=== PATIENT | male | born 2000 | race Caucasian/White ===

== ENCOUNTER 2023-01-13 10:11 | Emergency (ER) | payer BC ==
[2023-01-13] MEDS ORDERED: Dicyclomine 20 MG/2 ML VIAL ONE (10:48)
[2023-01-13] MEDS ORDERED: Ondansetron ODT 4 MG TAB ONE (10:48)
[2023-01-13] MEDS ORDERED: Diphenoxylate HCl/Atropine Tablet ONE ×2 (11:52→11:53)
== END 2023-01-13 13:02 | disposition home or self-care (01) ==
LOC: CSHERS 10:11
DX: B34.9 Viral infection, unspecified (principal); R19.7 Diarrhea, unspecified
CPT/HCPCS: 96360; 96372; Q0162

== ENCOUNTER 2023-01-17 20:39 | Emergency (ER) | payer BC ==
[~2023-01-17 20:39] MED LIST: Iopamidol 300 61% 100 ML VIAL FS ONE
[2023-01-17 22:27] LABS: Hemoglobin 13.8 g/dL (13.5-17.5); MDiff Complete? YES; Mean Corpuscular HGB CONC 32.3 g/dL (32.0-36.0); Mean Corpuscular Hemoglobin 27.4 pg (27.0-33.0); Mean Corpuscular Volume 84.9 fl (81.2-95.1); Mean Platelet Volume 8.6 fl (7.4-10.4); Platelet Count 484 10x3/uL (150-450); RBC Distribution Width 13.8 % (11.5-14.5); Red Blood Cell (RBC) Count 5.03 10x6/uL (4.32-5.72); White Blood Cell (WBC) Count 12.8 10x3/uL (3.5-10.5)
[2023-01-17 22:37] LABS: ALT (SGPT) 44 U/L (8-55); AST (SGOT) 24 U/L (5-34); Albumin 4.1 g/dL (3.5-5.0); Alkaline Phosphatase 68 U/L (40-110); Anion Gap 15 mmol/L (10-20); BUN (Urea Nitrogen) 17 mg/dL (8.9-20.6); Bilirubin, Total 0.4 mg/dL (0.2-1.2); Calc. Creatinine Clearance 0 mL/min (70-130); Calcium 8.9 mg/dL (7.8-10.44); Carbon Dioxide 26 mmol/L (22-29); Chloride 101 mmol/L (98-107); Estimated GFR 115; Globulin 3.1 g/dL (2.4-3.5); Glucose 88 mg/dL (70-105); Magnesium 2.4 mg/dL (1.6-2.6); Potassium 4.3 mmol/L (3.5-5.1); Protein, Total 7.2 g/dL (6.0-8.3); Sodium 138 mmol/L (136-145)
[2023-01-17 22:54] LABS: Band 3 % (5-11); Eosinophils 2 % (0-10); Lymphocytes 38 % (21-51); Monocytes 3 % (0-10); Neutrophil 49 % (42-75); Platelet Morphology Comment Appears Increased; Reactive Lymphocytes 5 % (0-10)
== END 2023-01-17 23:20 | disposition home or self-care (01) ==
LOC: CSHERS 20:39
DX: K52.9 Noninfective gastroenteritis and colitis, unspecified (principal); K62.89 Other specified diseases of anus and rectum
CPT/HCPCS: 74177; 80053; 82274; 83630; 83735; 85025; 86403; 87324; 87328; 87329; 87449; 96360; Q9967